=== PATIENT | male | born 1985 | race Caucasian/White ===

== ENCOUNTER 2017-07-08 12:25 | Emergency (ER) | payer SELFPAY ==
[~2017-07-08] VITALS: Ht 182.8 cm; Wt 81.6 kg
[~2017-07-08 12:25] MED LIST: AMOXICILLIN500 MG PO; BACTRIM DS 8001 TA1 PO; BACTRIM DS 8001 TAB PO; BIAXIN500 MG PO; CLARITIN10 MG PO; CLINDAMYCIN HC300 MG PO; FLEXERIL10 MG PO; HYDROCODONE BIT1 T11 PO; IBU800 MG PO; KEFLEX500 MG PO; MOTRIN800 MG PO; NORFLEX100 MG PO; PEPCID20 MG PO; ULTRAM50 MG PO; VICODIN ES 7501 TAB PO
[2017-07-08] MEDS ORDERED: CYCLOBENZAPRINE5 M3 PO (14:58)
[2017-07-08] MEDS ORDERED: NAPROSYN500 MG PO (14:58)
== END 2017-07-08 15:01 | disposition home or self-care (01) ==
LOC: ED 12:25
DX: M54.5 Low back pain (principal); F17.200 Nicotine dependence, unspecified, uncomplicated

== ENCOUNTER 2018-03-18 13:55 | Emergency (ER) | payer OTHER ==
[~2018-03-18] VITALS: Ht 182.8 cm; Wt 83.9 kg
[~2018-03-18 13:55] MED LIST changes: +CYCLOBENZAPRINE5 M3 PO; +NAPROSYN500 MG PO
[2018-03-18] MEDS ORDERED: AMOXICILLIN500 M2 PO (14:07)
[2018-03-18] MEDS ORDERED: NAPROSYN500 MG PO (14:07)
[2018-03-18] MEDS ORDERED: CYCLOBENZAPRINE10 MG PO (14:07)
== END 2018-03-18 14:53 | disposition home or self-care (01) ==
LOC: ED 13:55
DX: S39.012A Strain of muscle, fascia and tendon of lower back, initial encounter (principal); H66.91 Otitis media, unspecified, right ear; X58.XXXA Exposure to other specified factors, initial encounter; Y93.89 Activity, other specified; Y92.89 Other specified places as the place of occurrence of the external cause; Y99.8 Other external cause status

== ENCOUNTER 2018-04-02 12:06 | Emergency (ER) | payer OTHER ==
[~2018-04-02] VITALS: Ht 182.8 cm; Wt 83.9 kg
[~2018-04-02 12:06] MED LIST changes: +AMOXICILLIN500 M2 PO; +CYCLOBENZAPRINE10 MG PO
== END 2018-04-02 12:44 | disposition home or self-care (01) ==
LOC: ED 12:06
DX: R03.0 Elevated blood-pressure reading, without diagnosis of hypertension (principal)

== ENCOUNTER 2019-10-03 12:53 | Emergency (ER) | payer OTHER ==
[~2019-10-03] VITALS: Ht 182.8 cm; Wt 90.7 kg
[2019-10-03 13:43] LABS: BASO # 0.1 10*3/uL (0.0-0.1); BASO % 0.9 % (0.0-1.0); EOS % 0.2 % (1.0-4.0); HEMOGLOBIN 17.2 g/dl (14.0-18.0); LYMPH # 2.4 10*3/uL (1.3-4.4); LYMPH % 28.9 % (27.0-41.0); MEAN CELL VOLUME 95.8 fl (80.0-94.0); MEAN CORPUSCULAR HGB 34.3 pg (27.0-31.0); MEAN CORPUSCULAR HGB CONC 35.8 g/dl (33.0-37.0); MONO # 0.6 10*3/uL (0.1-1.0); MONO % 7.5 % (3.0-9.0); NEUT # 5.1 10*3/uL (2.3-7.9); NEUT % 62.4 % (47.0-73.0); PLATELET COUNT AUTOMATED 327 10*3/uL (130-400); RED BLOOD COUNT 5.01 10*6/uL (4.50-5.90); RED CELL DISTRI WIDTH 12.9 % (0-14.5); WHITE BLOOD COUNT 8.1 10*3/uL (4.8-10.8)
[2019-10-03 13:58] LABS: ALKALINE PHOSPHATASE 73 U/L (45-117); BUN 6 mg/dl (7-24); CHLORIDE 103 mmol/L (98-107); CREATININE 1.06 mg/dL (0.70-1.30); LIPASE 71 U/L (73-393); POTASSIUM 3.7 mmol/L (3.5-5.1); SGOT/AST 23 IU/L (3-35); SGPT/ALT 42 U/L (12-78); SODIUM 137 mmol/L (136-145); TOTAL PROTEIN 7.8 gm/dL (6.4-8.2)
[2019-10-03] MEDS ORDERED: ZOFRAN4 MG PO (14:52)
== END 2019-10-03 15:00 | disposition home or self-care (01) ==
LOC: ED 12:53
PROVIDERS: Nurse Practitioner Family
DX: K52.9 Noninfective gastroenteritis and colitis, unspecified (principal); R03.0 Elevated blood-pressure reading, without diagnosis of hypertension; R11.2 Nausea with vomiting, unspecified; F17.200 Nicotine dependence, unspecified, uncomplicated

== ENCOUNTER 2020-02-01 18:25 | Emergency (ER) | payer OTHER ==
[~2020-02-01] VITALS: Ht 182.8 cm; Wt 86.2 kg
[~2020-02-01 18:25] MED LIST changes: +ZOFRAN4 MG PO
[2020-02-01 19:28] LABS: BASO # 0.1 10*3/uL (0.0-0.1); BASO % 0.6 % (0.0-1.0); EOS # 0.1 10*3/uL (0.0-0.4); EOS % 0.5 % (1.0-4.0); HEMATOCRIT 47.1 % (42.0-52.0); LYMPH # 1.8 10*3/uL (1.3-4.4); LYMPH % 14.8 % (27.0-41.0); MEAN CELL VOLUME 94.8 fl (80.0-94.0); MEAN CORPUSCULAR HGB CONC 34.8 g/dl (33.0-37.0); MEAN PLATELET VOLUME 9.3 fl (9.6-12.3); MONO # 0.8 10*3/uL (0.1-1.0); MONO % 6.3 % (3.0-9.0); NEUT # 9.4 10*3/uL (2.3-7.9); NEUT % 77.6 % (47.0-73.0); PLATELET COUNT AUTOMATED 275 10*3/uL (130-400); RED BLOOD COUNT 4.97 10*6/uL (4.50-5.90); WHITE BLOOD COUNT 12.1 10*3/uL (4.8-10.8)
[2020-02-01 19:40] LABS: ACT PARTIAL THROMBO TIME 24.9 SECONDS (20.0-32.1)
[2020-02-01 19:43] LABS: ALBUMIN 3.7 gm/dl (3.1-4.5); ALKALINE PHOSPHATASE 77 U/L (45-117); BUN 7 mg/dl (7-24); CHLORIDE 104 mmol/L (98-107); CREATININE 0.71 mg/dL (0.70-1.30); LIPASE 75 U/L (73-393); POTASSIUM 3.4 mmol/L (3.5-5.1); SGOT/AST 36 IU/L (3-35); SGPT/ALT 65 U/L (12-78); SODIUM 136 mmol/L (136-145); TOTAL PROTEIN 7.7 gm/dL (6.4-8.2)
[2020-02-01 19:45] LABS: TROPONIN I < 0.015 ng/ml (<0.045)
[2020-02-01 20:11] LABS: BILIRUBIN NEGATIVE (NEGATIVE); BLOOD NEGATIVE (NEGATIVE); CLARITY CLEAR (CLEAR); COLOR YELLOW (YELLOW); GLUCOSE NEGATIVE (NEGATIVE); KETONE NEGATIVE (NEGATIVE); LEUKO ESTERASE NEGATIVE (NEGATIVE); NITRITE NEGATIVE (NEGATIVE); PH 7.5 (5.0-9.0); SPECIFIC GRAVITY 1.005 (1.005-1.030); UROBILINOGEN 0.2 E.U./dl (0.2-1.0)
[2020-02-01 20:12] LABS: BACTERIA 1+
[2020-02-01 20:18] LABS: URINE AMPHETAMINES > 1000 (1000ng/ml); URINE BARBITURATES < 200 (200ng/ml); URINE BENZODIAZEPINES < 200 (200ng/ml); URINE CANNABINOIDS (THC) > 50 (50ng/ml); URINE COCAINE < 300 (300ng/ml); URINE METHADONE < 300 (300ng/ml); URINE OPIATES < 300 (300ng/ml); URINE PHENCYCLIDINE < 25 (25ng/ml)
== END 2020-02-01 21:55 | disposition home or self-care (01) ==
LOC: ED 18:25
PROVIDERS: Nurse Practitioner Family
DX: F19.10 Other psychoactive substance abuse, uncomplicated (principal); F17.200 Nicotine dependence, unspecified, uncomplicated; Z79.899 Other long term (current) drug therapy

== ENCOUNTER 2021-07-05 21:11 | Emergency (ER) | payer OTHER ==
[~2021-07-05] VITALS: Ht 177.8 cm; Wt 86.2 kg
[2021-07-05 22:59] LABS: BASO # 0.1 10*3/uL (0.0-0.1); BASO % 0.6 % (0.0-1.0); EOS # 0.1 10*3/uL (0.0-0.4); EOS % 1.7 % (1.0-4.0); HEMATOCRIT 50.8 % (42.0-52.0); LYMPH # 1.6 10*3/uL (1.3-4.4); MEAN CELL VOLUME 98.4 fl (80.0-94.0); MEAN CORPUSCULAR HGB 35.3 pg (27.0-31.0); MEAN CORPUSCULAR HGB CONC 35.8 g/dl (33.0-37.0); MEAN PLATELET VOLUME 9.3 fl (9.6-12.3); MONO # 0.7 10*3/uL (0.1-1.0); MONO % 8.9 % (3.0-9.0); NEUT # 5.3 10*3/uL (2.3-7.9); NEUT % 68.5 % (47.0-73.0); PLATELET COUNT AUTOMATED 230 10*3/uL (130-400); RED BLOOD COUNT 5.16 10*6/uL (4.50-5.90); RED CELL DISTRI WIDTH 13.2 % (0-14.5); WHITE BLOOD COUNT 7.8 10*3/uL (4.8-10.8)
[2021-07-05 23:14] LABS: ALBUMIN 3.3 gm/dl (3.1-4.5); ALKALINE PHOSPHATASE 103 U/L (45-117); BUN 5 mg/dl (7-24); CHLORIDE 101 mmol/L (98-107); CREATININE 0.73 mg/dL (0.70-1.30); LIPASE 59 U/L (73-393); POTASSIUM 2.9 mmol/L (3.5-5.1); SGOT/AST 64 IU/L (3-35); SGPT/ALT 96 U/L (12-78); SODIUM 137 mmol/L (136-145)
[2021-07-05 23:30] LABS: BILIRUBIN 2+ (Negative); BLOOD Negative (Negative); CLARITY Clear (Clear); COLOR Orange (Yellow); GLUCOSE Negative (Negative); KETONE 1+ (Negative); LEUKO ESTERASE Trace (Negative); NITRITE Positive (Negative); PH 5.5 (4.5-8.0); SPECIFIC GRAVITY 1.025 (1.001-1.030)
[2021-07-05 23:38] LABS: BACTERIA 1+
[2021-07-05] MEDS ORDERED: SEPTDS PO (23:41)
== END 2021-07-06 02:15 | disposition admitted as inpatient to this hospital (09) ==
LOC: ED 21:11
PROVIDERS: Physician Assistant
DX: N39.0 Urinary tract infection, site not specified (principal); E87.6 Hypokalemia; Z88.8 Allergy status to other drugs, medicaments and biological substances

== ENCOUNTER 2021-09-08 01:03 | Emergency (ER) | payer OTHER ==
[~2021-09-08] VITALS: Ht 182.8 cm; Wt 95.3 kg
[~2021-09-08 01:03] MED LIST changes: +SEPTDS PO
[2021-09-08] MEDS ORDERED: AMLODIPINE BESY10 MG PO (01:14)
[2021-09-08] MEDS ORDERED: PANTOPRAZOLE SO40 MG PO (01:14)
[2021-09-08 02:01] LABS: BASO # 0.1 10*3/uL (0.0-0.1); BASO % 0.5 % (0.0-1.0); EOS # 0.1 10*3/uL (0.0-0.4); EOS % 0.9 % (1.0-4.0); HEMATOCRIT 47.4 % (42.0-52.0); LYMPH # 3.5 10*3/uL (1.3-4.4); LYMPH % 35.9 % (27.0-41.0); MEAN CELL VOLUME 95.2 fl (80.0-94.0); MEAN CORPUSCULAR HGB 34.5 pg (27.0-31.0); MEAN CORPUSCULAR HGB CONC 36.3 g/dl (33.0-37.0); MEAN PLATELET VOLUME 9.4 fl (9.6-12.3); MONO # 0.8 10*3/uL (0.1-1.0); NEUT # 5.3 10*3/uL (2.3-7.9); NEUT % 54.4 % (47.0-73.0); PLATELET COUNT AUTOMATED 331 10*3/uL (130-400); RED BLOOD COUNT 4.98 10*6/uL (4.50-5.90); WHITE BLOOD COUNT 9.7 10*3/uL (4.8-10.8)
[2021-09-08 02:16] LABS: ALBUMIN 3.9 gm/dl (3.1-4.5); ALKALINE PHOSPHATASE 85 U/L (45-117); BUN 5 mg/dl (7-24); CHLORIDE 101 mmol/L (98-107); CPK 104 U/L (39-308); CREATININE 0.88 mg/dL (0.70-1.30); POTASSIUM 3.5 mmol/L (3.5-5.1); SGOT/AST 20 IU/L (3-35); SGPT/ALT 56 U/L (12-78); SODIUM 135 mmol/L (136-145); TOTAL PROTEIN 7.9 gm/dL (6.4-8.2)
[2021-09-08 02:32] LABS: BILIRUBIN Negative (Negative); BLOOD Negative (Negative); CLARITY Clear (Clear); COLOR Yellow (Yellow); GLUCOSE Negative (Negative); KETONE Negative (Negative); LEUKO ESTERASE Negative (Negative); NITRITE Negative (Negative)
[2021-09-08 02:51] LABS: BACTERIA TRACE; EPITHELIAL CELLS 0-2; RBC 0-2 rbc/hpf (0-2)
== END 2021-09-08 03:25 | disposition home or self-care (01) ==
LOC: ED 01:03
PROVIDERS: Internal Medicine
DX: M54.50 Low back pain, unspecified (principal); R10.84 Generalized abdominal pain; Z88.8 Allergy status to other drugs, medicaments and biological substances; Z79.899 Other long term (current) drug therapy

== ENCOUNTER 2022-04-18 11:46 | Emergency (ER) | payer OTHER ==
[~2022-04-18 11:46] MED LIST changes: +AMLODIPINE BESY10 MG PO; +PANTOPRAZOLE SO40 MG PO
[2022-04-18] MEDS ORDERED: NAPROXEN250 MG PO (12:33)
[2022-04-18] MEDS ORDERED: AMOXICILLIN500 M3 PO (12:33)
[2022-04-18] MEDS ORDERED: TYLENOL325 M1 PO (12:33)
== END 2022-04-18 13:23 | disposition home or self-care (01) ==
LOC: ED 11:46
DX: K02.9 Dental caries, unspecified (principal); Z88.8 Allergy status to other drugs, medicaments and biological substances; Z79.899 Other long term (current) drug therapy; F17.200 Nicotine dependence, unspecified, uncomplicated

== ENCOUNTER 2023-01-12 15:46 | Emergency (ER) | payer OTHER ==
[~2023-01-12] VITALS: Ht 182.8 cm; Wt 90.7 kg
[~2023-01-12 15:46] MED LIST changes: +AMOXICILLIN500 M3 PO; +NAPROXEN250 MG PO; +TYLENOL325 M1 PO
[2023-01-12 17:28] LABS: BASO # 0.1 10*3/uL (0.0-0.1); BASO % 0.7 % (0.0-1.0); EOS % 0.3 % (1.0-4.0); HEMATOCRIT 52.2 % (42.0-52.0); LYMPH # 1.9 10*3/uL (1.3-4.4); LYMPH % 26.9 % (27.0-41.0); MEAN CORPUSCULAR HGB 34.6 pg (27.0-31.0); MEAN PLATELET VOLUME 9.3 fl (9.6-12.3); MONO # 0.8 10*3/uL (0.1-1.0); MONO % 11.2 % (3.0-9.0); NEUT # 4.4 10*3/uL (2.3-7.9); NEUT % 60.8 % (47.0-73.0); PLATELET COUNT AUTOMATED 327 10*3/uL (130-400); RED BLOOD COUNT 5.44 10*6/uL (4.50-5.90); RED CELL DISTRI WIDTH 13.9 % (0-14.5); WHITE BLOOD COUNT 7.2 10*3/uL (4.8-10.8)
[2023-01-12 17:44] LABS: ALKALINE PHOSPHATASE 77 U/L (46-116); CHLORIDE 100 mmol/L (98-107); POTASSIUM 2.5 mmol/L (3.4-5.1); SGPT/ALT 72 U/L (10-49); TOTAL PROTEIN 7.3 gm/dL (6.0-8.0)
[2023-01-12 17:47] LABS: BUN < 5 mg/dl (9-23)
[2023-01-12] MEDS ORDERED: ONDANSETRON4 MG SL (20:07)
== END 2023-01-12 20:38 | disposition home or self-care (01) ==
LOC: ED 15:46
PROVIDERS: Internal Medicine
DX: R11.2 Nausea with vomiting, unspecified (principal); R79.89 Other specified abnormal findings of blood chemistry; E87.6 Hypokalemia; D75.1 Secondary polycythemia; F14.90 Cocaine use, unspecified, uncomplicated

== ENCOUNTER 2024-04-12 05:09 | Emergency (ER) | payer SELFPAY ==
[~2024-04-12] VITALS: Ht 182.8 cm; Wt 90.7 kg
[~2024-04-12 05:09] MED LIST changes: +ONDANSETRON4 MG SL
[2024-04-12] MEDS ORDERED: Benzocaine/Menthol 1 LOZ LOZENGE PO ONE (05:30)
[2024-04-12] MEDS ORDERED: AMOX-CLAV 875-1 EACH PO (05:32)
[2024-04-12] MEDS ORDERED: CEPACOL SORETH1 EACH PO (05:32)
== END 2024-04-12 05:36 | disposition home or self-care (01) ==
LOC: ED 05:09
DX: J02.9 Acute pharyngitis, unspecified (principal); Z88.8 Allergy status to other drugs, medicaments and biological substances; Z98.890 Other specified postprocedural states; Z87.891 Personal history of nicotine dependence

== ENCOUNTER 2024-10-02 09:41 | Emergency (ER) | payer MEDICAID ==
[~2024-10-02] VITALS: Ht 182.8 cm; Wt 81.0 kg
[~2024-10-02 09:41] MED LIST changes: +AMOX-CLAV 875-1 EACH PO; +CEPACOL SORETH1 EACH PO
[2024-10-02] MEDS ORDERED: Amoxicillin/Clavulanate Pota 875 MG TAB PO ONE (10:15)
[2024-10-02] MEDS ORDERED: AMOX-CLAV 875-1 EACH PO (10:17)
== END 2024-10-02 11:14 | disposition home or self-care (01) ==
LOC: ED 09:41
DX: J02.0 Streptococcal pharyngitis (principal); F17.210 Nicotine dependence, cigarettes, uncomplicated; Z88.8 Allergy status to other drugs, medicaments and biological substances